=== PATIENT | female | born 1995 | race American Indian/Alaskan Native ===

== ENCOUNTER 2018-12-13 18:28 | Emergency (ER) | payer OTHER ==
[2018-12-13 19:20] VITALS: BMI 30.8
[2018-12-13 19:26] VITALS: RESP 18; TEMP 97.4
--- NOTE | 2018-12-13 20:18 | ED PDOC ---
Arrival/HPI - General Chief Complaint: GI Problem Time Seen by Provider: 12/13/18 19:25 Historian: Patient - History of Present Illness Narrative History of Present Illness (Text): 12/13/18 20:14 23 year old female, with no significant past medical history, presents to the emergency department complaining of abdominal cramps and discomfort. Patient informs she has had symptoms intermittently for a couple of months, usually po stprandial. Patient informs symptoms are sometimes accompanied by associated nausea. Patient states she has also been having occasional discharge from both nipples, however none now. 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 Patient denies any fever, chills, vomiting, diarrhea, urinary or vaginal symptoms, or any other complaints. Time/Duration: Prior to Arrival Symptom Onset: Gradual Symptom Course: Unchanged, Intermittent Quality: Cramping Activities at Onset: Light, Eating Context: Home Past Medical History - Provider Review Nursing Documentation Reviewed: Yes - Infectious Disease Hx of Infectious Diseases: None - Genitourinary/Gynecological Other/Comment: ovarian cyst - Psychiatric Hx Substance Use: No - Surgical History Hx Tonsillectomy: Yes - Anesthesia Hx Anesthesia: Yes Hx Anesthesia Reactions: No Hx Malignant Hyperthermia: No Family/Social History - Physician Review Nursing Documentation Reviewed: Yes Family/Social History: No Known Family HX Smoking Status: Never Smoked Hx Alcohol Use: No Hx Substance Use: No Allergies/Home Meds Allergies/Adverse Reactions: Allergies codeine Allergy (Verified 12/13/18 19:20) ANAPHYLAXIS Penicillins Allergy (Verified 12/13/18 19:20) RASH Review of Systems - Physician Review All systems were reviewed & negative as marked: Yes - Review of Systems Constitutional: absent: Fevers, Night Sweats Gastrointestinal: Abdominal Pain. absent: Diarrhea, Vomiting Genitourinary Female: Normal, Other (Nipple discharge). absent: Dysuria, Vaginal Bleeding, Vaginal Discharge Physical Exam - Physical Exam Narrative Physical Exam (Text): 12/13/18 20:20 Breast exam chaperoned by TALHA Segura Vital Signs Reviewed: Yes Vital Signs Temp Pulse Resp BP Pulse Ox 12/13/18 19:25 97.4 F L 77 18 124/83 97 Temperature: Afebrile Blood Pressure: Normal Pulse: Regular Respiratory Rate: Normal Appearance: Positive for: Well-Appearing, Non-Toxic, Comfortable Pain Distress: None Mental Status: Positive for: Alert and Oriented X 3 - Systems Exam Head: Present: Atraumatic, Normocephalic Pupils: Present: PERRL Extroacular Muscles: Present: EOMI Conjunctiva: Present: Normal Mouth: Present: Moist Mucous Membranes Neck: Present: Normal Range of Motion Respiratory/Chest: Present: Clear to Auscultation, Good Air Exchange. No: Respiratory Distress, Accessory Muscle Use Cardiovascular: Present: Regular Rate and Rhythm, Normal S1, S2. No: Murmurs Abdomen: Present: Tenderness (Minimal upper abdominal tenderness), Normal Bowel Sounds. No: Distention, Peritoneal Signs Breast/Axillary: Present: Other (Bilateral nipple piercings). No: Axillary Lymphad, Erythema, Masses, Nipple Discharge, Tender to Palpation Back: Present: Normal Inspection. No: CVA Tenderness Upper Extremity: Present: Normal Inspection. No: Cyanosis, Edema Lower Extremity: Present: Normal Inspection. No: Edema Neurological: Present: GCS=15, CN II-XII Intact, Speech Normal Skin: Present: Warm, Dry, Normal Color. No: Rashes Psychiatric: Present: Alert, Oriented x 3, Normal Insight, Normal Concentration Medical Decision Making ED Course and Treatment: 12/13/18 20:23 Impression: 23 year old female presents with abdominal pain and nipple discharge. Plan: -- CMP, Lipase -- CBC -- US ABD complete -- Reassess and disposition Prior Visits: Notes and results from previous visits were reviewed. Progress Notes: 12/13/18 21:59 ABD US CLINICAL HISTORY: Abdominal pain. TECHNIQUE: Realtime sonographic images were obtained in multiple projections. COMMENTS: The liver is of uniform echo texture without evidence of mass or defect. There is no intra or extrahepatic biliary ductal dilatation. The common bile duct measures 0.34 cm. The gallbladder is physiologically distended without evidence of calculi. The gallbladder wall is not thickened measuring 0.19 cm and there is no pericholecystic fluid. There is no abdominal ascites. The visualized portions of abdominal aorta and inferior vena cava present no abnormalities. The visualized portions of the pancreas are unremarkable. The spleen is of uniform echo texture and does not appear enlarged measuring 8.78 x 3.2 cm. The right kidney measures 10.9 x 4.68 x 5.59 cm and the left kidney measures 10.06 x 5.67 x 5.98 cm. Both kidneys are free of hydronephrosis. IMPRESSION: Normal study. - RAD Interpretation Radiology Orders: 12/13/18 19:56 ABDOMEN COMPLETE [US] Stat - Scribe Statement The provider has reviewed the documentation as recorded by the Scribe Alfonzo Melendez Provider Scribe Attestation: All medical record entries made by the Scribe were at my direction and personally dictated by me. I have reviewed the chart and agree that the record accurately reflects my personal performance of the history, physical exam, medical decision making, and the department course for this patient. I have also personally directed, reviewed, and agree with the discharge instructions and disposition. Disposition/Present on Arrival - Present on Arrival Any Indicators Present on Arrival: No History of DVT/PE: No History of Uncontrolled Diabetes: No Urinary Catheter: No History of Decub. Ulcer: No History Surgical Site Infection Following: None - Disposition Have Diagnosis and Disposition been Completed?: Yes Diagnosis: Gastritis Disposition: HOME/ ROUTINE Disposition Time: 22:26 Patient Plan: Discharge Patient Problems: Current Active Problems Problem Status Onset Gastritis Acute Condition: GOOD Discharge Instructions (ExitCare): Gastritis (DC) Additional Instructions: Take meds as prescribed/avoid alcohol or caffeinated beverages/follow up with your doctor this week Prescriptions: Pantoprazole [Protonix] 40 mg PO DAILY #14 ect Referrals: Jodee Berry MD [Primary Care Provider] - Follow up with primary Forms: [facility] (Bel[place]ian), WORK NOTE
[2018-12-13 20:28] LABS: HEMOGLOBIN 13.3 g/dL (12.0-16.0); MEAN CELL VOLUME 85.1 fl (80.0-105.0); MEAN CORPUSCULAR HEMOGLOBIN 30.5 pg (25.0-35.0); MEAN CORPUSCULAR HGB CONC 35.8 g/dl (31.0-37.0); MEAN PLATELET VOLUME 9.7 fl (7.0-11.0); RBC 4.36 10^6/uL (3.5-6.1); WHITE BLOOD COUNT 4.7 10^3/uL (4.5-11.0)
[2018-12-13 20:46] LABS: ALB/GLOB RATIO 1.4 (1.1-1.8); ALBUMIN 4.1 g/dL (3.0-4.8); ALT/SGPT 23 U/L (7-56); AST/SGOT 23 U/L (14-36); BLOOD UREA NITROGEN 10 mg/dL (7-21); CALCIUM 9.5 mg/dL (8.4-10.5); GFR NON-AFRICAN AMERICAN > 60; LIPASE 41 U/L (23-300)
[2018-12-13 22:07] LABS: PH,URINE 7.5 (4.7-8.0); URINE BILIRUBIN NEGATIVE (NEGATIVE); URINE BLOOD NEGATIVE (NEGATIVE); URINE GLUCOSE (UA) NEGATIVE (NEGATIVE); URINE LEUKOCYTE ESTERASE NEGATIVE Leu/uL (NEGATIVE); URINE PROTEIN NEGATIVE mg/dL (<30 mg/dL); URINE UROBILINOGEN 0.2 E.U./dL (<1 E.U./dL)
[2018-12-13 22:08] LABS: URINE APPEARANCE CLEAR (CLEAR); URINE COLOR LIGHT YELLOW (YELLOW)
[2018-12-14 01:46] VITALS: BP 125/74; PULSE 80; O2SAT 99
--- NOTE | 2018-12-14 11:06 | US ---
Date of service: 12/13/2018 HISTORY: pain COMPARISON: None. TECHNIQUE: Sonographic evaluation of the abdomen. FINDINGS: LIVER: Measures 13.0 cm. Normal echogenicity of the liver parenchyma. No mass. No intrahepatic bile duct dilatation. GALLBLADDER: Unremarkable. No gallstones. COMMON BILE DUCT: Measures 3 mm. No stones. No dilatation. PANCREAS: Unremarkable as visualized. No mass. No ductal dilatation. RIGHT KIDNEY: Measures 10.9cm. Normal echogenicity. No calculus, mass, or hydronephrosis. LEFT KIDNEY: Measures 10.1cm. Normal echogenicity. No calculus, mass, or hydronephrosis. SPLEEN: Normal in size and contour. No mass. AORTA: No aneurysmal dilatation. IVC: Unremarkable. OTHER FINDINGS: None. IMPRESSION: Unremarkable abdominal sonogram.
== END 2018-12-13 22:30 | disposition home or self-care (01) ==
LOC: MERGE 18:28 → ED 18:28
DX: K29.70 Gastritis, unspecified, without bleeding (principal)

== ENCOUNTER 2019-01-26 19:12 | Emergency (ER) | payer OTHER ==
[2019-01-26 19:35] VITALS: PULSE 84; RESP 18; TEMP 97.6; O2SAT 100; BMI 28.3
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
== END 2019-01-26 22:21 | disposition home or self-care (01) ==
LOC: ED 19:12
DX: S53.401A Unspecified sprain of right elbow, initial encounter (principal); W23.0XXA Caught, crushed, jammed, or pinched between moving objects, initial encounter
CPT/HCPCS: 73080; 81025; 96372; 99284; J1885